=== PATIENT | female | born 1935 | race Caucasian/White ===

== ENCOUNTER → 2016-06-23 | Outpatient (CLI) | payer MEDICARE, MEDICAID | LOC: RAD 13:20 | PROVIDERS: ATTEND Internal Medicine Hematology & Oncology | DX: R05 Cough (principal); R63.4 Abnormal weight loss; D49.1 Neoplasm of unspecified behavior of respiratory system | CPT/HCPCS: 71260; 74177 ==

== ENCOUNTER → 2016-08-19 | Outpatient (CLI) | payer MEDICARE, MEDICAID ==
--- NOTE | 2016-08-19 18:49 | XCELERA REPORT ---
[address] [address] Transthoracic Echocardiogram Report Name: MIGUEL ANGEL KYLE Age: 81 yrs Gender: Female : 1935 Patient Status: Outpatient Patient Location: Study Date: 08/19/2016 12:59 PM Height: 64 in Weight: 117 lb BSA: 1.6 m2 Reason For Study: DIZZINESS Ordering Physician: DOLORES MORE Performed By: Colt Olguin Interpretation Summary severe aortic root calcification with no enlargement. severe R cor cusps calcification, restricted movement, the other 2 cusps still mobile. Peak AV yeyo and gradient not suggests , but cannot rule out low output low gradient . There is also mod. AR, with no LV enlargement. Heavy mitral annular calcification with no MA and mild MR with no LA enlargement. Mod TR with borderline RA enlargement, and RVSP40 mm Hg mild/mod pulm hypertension. Mild conc. LVH with subaortic hypertrophy with no LVOT gradient.Diffuse mild hypokinesis. AR mod/severe. LVDD stageI severe MAC MMode/2D Measurements \T\ Calculations RVDd: 2.1 cm LVIDd: 4.4 cm FS: 21.0 % Ao root diam: IVSd: 1.1 cm LVIDs: 3.5 cm EDV(Teich): 3.3 cm LVPWd: 1.1 cm 89.0 ml Ao root area: ESV(Teich): 50.8 ml 8.5 cm2 EF(Teich): 42.9 %LA dimension: 2.6 cm LVLd ap4: 7.0 cm SV(MOD-sp4): EDV(MOD-sp4): 40.0 ml 90.0 ml LVLs ap4: 6.3 cm ESV(MOD-sp4): 50.0 ml EF(MOD-sp4): 44.4 % Doppler Measurements \T\ Calculations MV E max yeyo: MV P1/2t max yeyo: Ao V2 max: AI max yeyo: 55.9 cm/sec 55.9 cm/sec 119.4 cm/sec 326.1 cm/sec MV A max yeyo: MV P1/2t: 69.2 msec Ao max PG: AI max P.4 cm/sec MVA(P1/2t): 3.2 cm2 5.7 mmHg 42.6 mmHg MV E/A: 0.59 MV dec slope: AI dec slope: 236.5 cm/sec2 203.6 cm/sec2 AI P1/2t: 469.2 msec LV V1 max PG: PA V2 max: PI end-d yeyo: TR max yeyo: 2.1 mmHg 64.8 cm/sec 113.6 cm/sec 224.2 cm/sec LV V1 max: PA max P.7 mmHg TR max P.2 cm/sec 20.6 mmHg RVSP(TR): 30.6 mmHg RAP systole: 10.0 mmHg Left Ventricle The left ventricle is normal in size. There is mild concentric left ventricular hypertrophy. Proximal septal thickening is noted. Left ventricular systolic function is mildly reduced. The Ejection Fraction estimate is 40-45%. Doppler measurements suggest impaired left ventricular relaxation, which is associated with grade I/IV or mild diastolic dysfunction. There is mild global hypokinesis of the left ventricle. There is no thrombus. Right Ventricle The right ventricle is grossly normal size. The right ventricular systolic function is normal. Atria The right atrium is normal. The left atrial size is normal. The interatrial septum is intact with no evidence for an atrial septal defect. Mitral Valve There is moderate mitral leaflet calcification. There is severe mitral annular calcification. There is no evidence of mitral valve prolapse. There is no mitral valve stenosis. There is a mild amount of mitral regurgitation. Aortic Valve The aortic valve is moderately calcified. RCC. The aortic valve is trileaflet. There is no aortic valvular vegetation. There is no aortic valve stenosis. There is a peak gradient of 6 mm of Hg. There is a moderate to severe amount of aortic regurgitation. jet ht/LVOT 0.59, PHT 481ms. Tricuspid Valve The tricuspid is normal in structure and function. There is no tricuspid valve prolapse. There is no tricuspid stenosis. There is a mild amount of tricuspid regurgitation. Pulmonic Valve The pulmonic valve is not well visualized. There is a trace or physiologic amount of pulmonic regurgitation. Great Vessels The aortic root is normal size. There is aortic root sclerosis/calcification. Effusions There is no pericardial effusion. I WMSI = 2.00 % Normal = 0 Segments Size X - Cannot 2 - 4 - 1-2 small Interpret 1 - Normal Hypokinetic 3 - AkineticDyskinetic 3-5 moderate 5 - 6-14 large Aneurysmal 15-16 diffuse : DOLORES MORE > Matt Simmons
== END ==
LOC: SP 12:28
PROVIDERS: ATTEND Family Medicine
DX: R42 Dizziness and giddiness (principal); I65.21 Occlusion and stenosis of right carotid artery
CPT/HCPCS: 93306; 93880

== ENCOUNTER 2016-09-01 18:27 | Emergency (ER) | payer MEDICARE, MEDICAID ==
--- NOTE | 2016-09-01 20:30 | ER Document Report ---
ED Medical Screen (RME) - General Chief Complaint: Fall Stated Complaint: FALL,HEAD LACERATION Mode of Arrival: Wheelchair Information source: Patient, Relative Notes: 81-year-old female presents after a fall with complaints of abrasion to left supraorbital region pain of the right great toe Patient unsure if she passed out or tripped Patient has history of dizziness and falls I have greeted and performed a rapid initial assessment of this patient. A comprehensive ED assessment and evaluation of the patient, analysis of test results and completion of the medical decision making process will be conducted by additional ED providers. PHYSICAL EXAMINATION: GENERAL: Well-appearing, well-nourished and in no acute distress. HEAD: Left orbital completion EYES: Pupils equal round extraocular movements intact, conjunctiva are normal. ENT: Nares patent NECK: Normal range of motion LUNGS: No respiratory distress Musculoskeletal: Normal range of motion right foot great toe tenderness NEUROLOGICAL: Normal speech, normal gait. PSYCH: Normal mood, normal affect. SKIN: Facial abrasion TRAVEL OUTSIDE OF THE [place] IN LAST 30 DAYS: No - Related Data Allergies/Adverse Reactions: No Known Allergies Allergy (Verified 09/01/16 20:18) Past Medical History - Past Medical History Cardiac Medical History: Reports: Hx Hypercholesterolemia, Hx Hypertension Denies: Hx Coronary Artery Disease, Hx Heart Attack Pulmonary Medical History: Reports: Hx Pneumonia Denies: Hx Asthma, Hx Bronchitis Neurological Medical History: Denies: Hx Cerebrovascular Accident, Hx Seizures Endocrine Medical History: Reports: Hx Diabetes Mellitus Type 2 Renal/ Medical History: Denies: Hx Peritoneal Dialysis Malignancy Medical History: Reports: Hx Lung Cancer Musculoskeltal Medical History: Reports Hx Arthritis - LOWER BACK? Psychiatric Medical History: Denies: Hx Depression Past Surgical History: Reports: Hx Section, Hx Tubal Ligation. Denies : Hx Hysterectomy - Immunizations Immunizations up to date: No Hx Diphtheria, Pertussis, Tetanus Vaccination: No
[2016-09-01 20:53] LABS: ABSOLUTE BASOPHILS # (AUTO) 0.1 10^3/uL (0.0-0.2); ABSOLUTE EOSINOPHILS # (AUTO) 0.2 10^3/uL (0.0-0.6); ABSOLUTE LYMPHOCYTES (AUTO) 1.8 10^3/uL (0.5-4.7); ABSOLUTE MONOCYTES (AUTO) 0.6 10^3/uL (0.1-1.4); BASOPHILS % (AUTO) 1.6 % (0-2); EOSINOPHILS % (AUTO) 2.3 % (0-6); HEMATOCRIT 38.5 % (36.0-47.0); HEMOGLOBIN 12.6 g/dL (12.0-15.5); HGB HCT DIFFERENCE -0.7; LYMPHOCYTES % (AUTO) 20.9 % (13-45); MEAN CORPUSCULAR HGB CONC 32.8 g/dL (32.0-36.0); MEAN CORPUSCULAR VOLUME 83 fl (80-97); MONOCYTES % (AUTO) 7.3 % (3-13); RED BLOOD COUNT 4.67 10^6/uL (3.72-5.28); RED CELL DISTRIBUTION WIDTH 14.7 % (11.5-14.0); SEGMENTED NEUTROPHILS % (AUTO) 67.9 % (42-78); WHITE BLOOD COUNT 8.8 10^3/uL (4.0-10.5)
[2016-09-01 21:13] LABS: ALANINE AMINOTRANSFERASE 22 U/L (9-52); ALBUMIN 4.3 g/dL (3.5-5.0); ALKALINE PHOSPHATASE 69 U/L (38-126); ANION GAP 12 (5-19); ASPARTATE AMINO TRANSFERASE 19 U/L (14-36); BILIRUBIN,DIRECT 0.1 mg/dL (0.0-0.4); BILIRUBIN,TOTAL 0.4 mg/dL (0.2-1.3); BLOOD UREA NITROGEN 20 mg/dL (7-20); CALCIUM 10.1 mg/dL (8.4-10.2); CARBON DIOXIDE 29 mmol/L (22-30); CHLORIDE 102 mmol/L (98-107); CREATINE KINASE 41 U/L (30-135); CREATININE RESULT 0.78 mg/dL (0.52-1.25); GLUCOSE 102 mg/dL (75-110); LIPASE 123.3 U/L (23-300); POTASSIUM 4.8 mmol/L (3.6-5.0); SODIUM 143.3 mmol/L (137-145); TOTAL PROTEIN 6.8 g/dL (6.3-8.2)
[2016-09-01 21:23] LABS: CREATINE KINASE MB 1.32 ng/mL (<4.55)
[2016-09-01 21:28] LABS: TROPONIN I < 0.012 ng/mL
--- NOTE | 2016-09-01 21:45 | ER Document Report ---
ED General - General Chief Complaint: Fall Stated Complaint: FALL,HEAD LACERATION Time seen by provider: 21:45 Mode of Arrival: Wheelchair Information source: Patient TRAVEL OUTSIDE OF THE [place] IN LAST 30 DAYS: No - HPI Notes: Pt presents from home after fall at home. The patient recalls reaching up for a railing when she was going down the stairs and missing the railing then she awoke on the floor. The patient has had previous episodes of falls at the same location trying to go down the stairs where the railing is not easily accessible. Patient presents with left facial pain, headache, right great toe pain and left lateral lower rib cage pain since the fall. Patient denies any anterior chest wall pain or abdominal pain. She reports no focal numbness or paresthesia. Patient has a history of recurrent falls and vertigo and is followed up with neurology for the same in the past. Patient lives at home with her son. The patient's regular practitioner has made attempts at obtaining home health assistance for the patient, but this is been unsuccessful. - Related Data Allergies/Adverse Reactions: No Known Allergies Allergy (Verified 09/01/16 20:18) Past Medical History - General Information source: Patient, Relative - Social History Smoking Status: Former Smoker Cigarette use (# per day): No Frequency of alcohol use: None Drug Abuse: None Family History: Reviewed & Not Pertinent - Past Medical History Cardiac Medical History: Reports: Hx Hypercholesterolemia, Hx Hypertension Denies: Hx Coronary Artery Disease, Hx Heart Attack Pulmonary Medical History: Reports: Hx Pneumonia Denies: Hx Asthma, Hx Bronchitis Neurological Medical History: Denies: Hx Cerebrovascular Accident, Hx Seizures Endocrine Medical History: Reports: Hx Diabetes Mellitus Type 2 Renal/ Medical History: Denies: Hx Peritoneal Dialysis Malignancy Medical History: Reports: Hx Lung Cancer Musculoskeltal Medical History: Reports Hx Arthritis - LOWER BACK? Psychiatric Medical History: Denies: Hx Depression Past Surgical History: Reports: Hx Section, Hx Tubal Ligation. Denies : Hx Hysterectomy - Immunizations Immunizations up to date: No Hx Diphtheria, Pertussis, Tetanus Vaccination: No Hx Pneumococcal Vaccination: 02/08/10 Review of Systems - Review of Systems Notes: REVIEW OF SYSTEMS: CONSTITUTIONAL : Denies fever, chills, or sweats. Denies recent illness. EENT: Denies eye, ear, throat, or mouth pain or symptoms. Denies nasal or sinus congestion or discharge. Denies throat, tongue, or mouth swelling or difficulty swallowing. CARDIOVASCULAR: Denies palpitations or racing or irregular heart beat. Denies ankle edema. RESPIRATORY: Denies cough, cold, or chest congestion. Denies shortness of breath, difficulty breathing, or wheezing. GASTROINTESTINAL: Denies abdominal pain or distention. Denies nausea, vomiting , or diarrhea. Denies blood in vomitus, stools, or per rectum. Denies black, tarry stools. Denies constipation. GENITOURINARY: Denies difficulty urinating, painful urination, burning, frequency, blood in urine, or discharge. FEMALE GENITOURINARY: Denies vaginal bleeding, heavy or abnormal periods, irregular periods. Denies vaginal discharge or odor. MUSCULOSKELETAL: Denies back or neck pain or stiffness. Denies joint pain or swelling. SKIN: Denies rash, lesions or sores. HEMATOLOGIC : Denies easy bruising or bleeding. LYMPHATIC: Denies swollen, enlarged glands. NEUROLOGICAL: Denies confusion or altered mental status. Denies dizziness or lightheadedness. Denies weakness or paralysis or loss of use of either side. Denies problems speech. Denies sensory loss, numbness, or tingling. Denies seizures. PSYCHIATRIC: Denies anxiety or stress. Denies depression, suicidal ideation, or homicidal ideation. ALL OTHER SYSTEMS REVIEWED AND NEGATIVE. Dictation was performed using [employer] voice recognition software Physical Exam - Notes Notes: PHYSICAL EXAMINATION: GENERAL: Well-appearing, well-nourished and in no acute distress. HEAD: Patient has a left facial contusion along the left supraorbital rim where there is a 1 cm laceration and abrasion. There is no bony deformity or crepitance noted to the region. No obvious exposed bone or fracture. EYES: Pupils equal round and reactive to light, extraocular movements intact, conjunctiva are normal. ENT: Nares patent, oropharynx clear without exudates. Moist mucous membranes. NECK: Normal range of motion, supple without lymphadenopathy LUNGS: Breath sounds clear to auscultation bilaterally and equal. No wheezes rales or rhonchi. HEART: Regular rate and rhythm without murmurs ABDOMEN: Soft, nontender, nondistended abdomen. No guarding, no rebound. No masses appreciated. Female : deferred Musculoskeletal: Patient has pain to the left lateral lower rib cage, but there is no subcutaneous emphysema or crepitance or obvious bony deformity. Patient also has pain to the right great toe, but there is no obvious bony deformity or crepitance noted. No nail bed injury. Full range of motion to the foot and great toe. NEUROLOGICAL: Cranial nerves grossly intact. Normal speech, normal gait. Normal sensory, motor exams. PSYCH: Normal mood, normal affect. SKIN: Warm, Dry, normal turgor, no rashes or lesions noted. Course - Re-evaluation Re-evalutation: 09/02/16 00:14 Patient's tetanus was up-to-date. Wound care was cleaned and then topical anesthetic LET was applied to the wound. After this wound was cleaned and irrigated and was reapproximated and closed using Dermabond with good result. Patient tolerated the procedure well. Blood loss negligible. Patient was able to ambulate without significant difficulty. Had a long discussion with the patient and her son related to her safety at home. The patient will have the home environment further evaluated to look for safety measures can be taken for additional hand old and safety rails. She will use her walker at all times. She will stand up slowly. She will also follow-up with her regular practitioner to continue to pursue home health systems or other assistance from the son who stays with her at home. - Laboratory Result Diagrams: 09/01/16 20:37 09/01/16 20:37 Laboratory results interpreted by me: 09/01/16 09/01/16 20:37 20:37 RDW 14.7 H NT-Pro-B Natriuret Pep 651 H Discharge - Discharge Clinical Impression: Accidental fall Qualifiers: Encounter type: initial encounter Qualified Code(s): W19.XXXA - Unspecified fall, initial encounter Head injury Qualifiers: Encounter type: initial encounter Qualified Code(s): S09.90XA - Unspecified injury of head, initial encounter Facial laceration Qualifiers: Encounter type: initial encounter Qualified Code(s): S01.81XA - Laceration without foreign body of other part of head, initial encounter Facial fracture Qualifiers: Encounter type: initial encounter Facial bone/location: other facial bone Fracture type: closed Laterality: left Qualified Code(s): S02.82XA - Fracture of other specified skull and facial bones, left side, initial encounter for closed fracture Condition: Stable Disposition: HOME, SELF-CARE Additional Instructions: Take precautions to protect yourself by troubleshooting your home against any fall risks. Use a walker at all times when ambulating. Facial Laceration A laceration on the face usually heals quickly. Our treatment goal will be to avoid an unsightly scar or stitch-delatorre. Your cut has been closed with the best techniques to avoid scarring, but a great deal depends on how well you protect the laceration -- and on your inherited tendency to scar. As facial cuts are usually caused by a blunt injury, it's usually best to rest for a day to avoid swelling. Do not allow any bumping or rubbing of the area. Keep the stitches dry. Follow the treatment plan the doctor has discussed with you and DO NOT DELAY getting the stitches out. Once stitches are removed, continue to protect the area from trauma and sunlight (use a sunscreen) for about six months. If any signs of infection occur (swelling, redness, increasing tenderness, red streaks, tender lumps in the neck or near the ear on the side of the laceration, or fever), see the doctor immediately. Facial Bone Fracture, Undisplaced You have a fracture of the facial bones. It's in good position to heal and needs no splinting or special protection. The fracture will take three to four weeks to heal. At first, the injured area should be cold-packed frequently. Rest in a semi-sitting position if possible. When pain and swelling subside, you can return to regular activities. Do not participate in sports for four weeks. The fracture must remain undisturbed. Call the doctor or return for re-evaluation if you suspect a re-injury, or if any of the following signs of complications occur: continued drainage of fluid or blood from the nose, fever, severe facial swelling or increasing pain, numbness, or loss of vision. Prescriptions: Tramadol HCl 50 mg PO Q4HP PRN #30 tablet PRN Reason: Cephalexin Monohydrate [Keflex 500 mg Capsule] 500 mg PO TID #20 capsule Referrals: DOLORES MORE MD [Primary Care Provider] - Follow up tomorrow
[2016-09-01] MEDS ORDERED: LIDOCAINE 4%/TETRACAINE 0.5%/EPI 0.18% 5 ML TOPICAL SOLN TOP ONE (22:41)
[2016-09-01] MEDS ORDERED: TRAMADOL HCL 50 MG TABLET PO ONE (22:42)
[2016-09-02] MEDS ORDERED: CEPHALEXIN 500 MG CAPSULE PO ONE (00:04)
[2016-09-02 00:39] VITALS: BP 122/61
[2016-09-02 01:01] LABS: APPEARANCE,URINE SLIGHTLY-CLOUDY; BILIRUBIN,URINE NEGATIVE (NEGATIVE); GLUCOSE, URINE NEGATIVE (NEGATIVE); KETONES,URINE NEGATIVE (NEGATIVE); LEUKOCYTE ESTERASE,URINE MODERATE (NEGATIVE); NITRITE,URINE POSITIVE (NEGATIVE); PROTEIN,URINE NEGATIVE (NEGATIVE); URINE SPECIFIC GRAVITY 1.006; UROBILINOGEN,URINE NEGATIVE mg/dL (<2.0)
--- NOTE | 2016-09-02 11:20 | EKG REPORT ---
SEVERITY:- ABNORMAL ECG - SINUS RHYTHM MULTIPLE ATRIAL PREMATURE COMPLEXES PROBABLE LEFT ATRIAL ABNORMALITY MINIMAL ST DEPRESSION, ANTEROLATERAL LEADS : Confirmed by: Jarred Iglesias 02-Sep-2016 11:20:09
== END 2016-09-02 00:52 | disposition home or self-care (01) ==
LOC: ER 18:27
DX: S09.90XA Unspecified injury of head, initial encounter (principal); S01.81XA Laceration without foreign body of other part of head, initial encounter; S02.82XA Fracture of other specified skull and facial bones, left side, initial encounter for closed fracture; R07.81 Pleurodynia; M79.674 Pain in right toe(s); W10.9XXA Fall (on) (from) unspecified stairs and steps, initial encounter; Y92.009 Unspecified place in unspecified non-institutional (private) residence as the place of occurrence of the external cause; I10 Essential (primary) hypertension; E78.00 Pure hypercholesterolemia, unspecified; E11.9 Type 2 diabetes mellitus without complications; Z87.891 Personal history of nicotine dependence; Z91.81 History of falling; Z85.118 Personal history of other malignant neoplasm of bronchus and lung; Z98.51 Tubal ligation status
CPT/HCPCS: 93005; 99284; 36415; 82553; 82550; 83690; 85025; 80053; 81001; 84484; 83880; 71020; 73630; 70450; 70486; 93010; A9270 ×2; J3490

== ENCOUNTER → 2017-01-22 | Outpatient (CLI) | payer MEDICARE, MEDICAID ==
--- NOTE | 2017-01-22 17:31 | RADIOLOGY REPORT (SQ) ---
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 Images reviewed with lung, soft tissue and bone windows. Reconstructed coronal and sagittal MPR images reviewed. All images stored on PACS. All CT scanners at this facility use dose modulation, iterative reconstruction, and/or weight based d osing when appropriate to reduce radiation dose to as low as reasonably achievable (ALARA). [facility]: Dose Right [facility]: CareDose [facility]: Dose Right [facility]: Teradose 4D [facility]: [employer] CONTRAST TYPE AND DOSE: contrast/concentration: Isovue 370.00 mg/ml; Total Contrast Delivered: 80.0 ml; Total Saline Delivered: 55.0 ml RENAL FUNCTION: Creatinine 0.9 RADIATION DOSE: Up-to-date CT equipment and radiation dose reduction techniques were employed. CTDIv ol: 5.6 mGy. DLP: 200 mGy-cm. . LIMITATIONS: None. FINDINGS: LUNGS AND PLEURA: There are multiple small subcentimeter nodules scattered throughout both lungs. These are stable over the series of exams. Index lesions are as follows: 8 mm nodule superior segment right lower lobe, axial image 42 11 mm nodule left lower lobe, axial image 90 No pleural effusions. No pneumothorax. Airways are patent. HILAR AND MEDIASTINAL STRUCTURES: No identified masses or abnormal nodes. Moderate size retrocardiac hiatal hernia HEART AND VASCULAR STRUCTURES: No aneurysm or dissection. No central pulmonary emboli. No pericardi al effusion. Calcified coronary arteries. Minimal aortic valve calcification HARDWARE: None in the chest. UPPER ABDOMEN: No significant findings. Limited exam. THYROID AND OTHER SOFT TISSUES: No masses. No adenopathy. BONES: Stable 1 cm sclerotic lesion T11 vertebral body OTHER: No other significant finding. IMPRESSION: Stable appearance of the chest compared to studies dating back to 05/21/2014 TECHNICAL DOCUMENTATION: JOB ID: [id number] Quality ID # [id number]: Final reports with documentation of one or more dose reduction techniques (e.g., Au tomated exposure control, adjustment of the mA and/or kV according to patient size, use of iterative reconstruction technique) 2010 [employer]- All Rights Reserved
== END ==
LOC: RAD 09:51
PROVIDERS: ATTEND Internal Medicine Hematology & Oncology
DX: D49.1 Neoplasm of unspecified behavior of respiratory system (principal); R91.8 Other nonspecific abnormal finding of lung field; J98.4 Other disorders of lung
CPT/HCPCS: 71260

== ENCOUNTER → 2017-07-02 | Outpatient (CLI) | payer MEDICARE, MEDICAID ==
--- NOTE | 2017-07-07 13:45 | EEG PRO FEE REPORT ---
EEG INTERPRETATION PATIENT NAME: MIGUEL ANGEL KYLE ROOM#: ORDER#: [id number] DATE OF STUDY: 07/02/2017 : 1935 REFERRING MD: RENAY WEAVER M.D. DIAGNOSIS: Benign neoplasm meninges. REPORT The background activity consists of 8 to 9 Hz alpha with frequent motion artifact being noted. No abnormalities are seen on the video portion of the tracing. No clear focal slowing, amplitude asymmetry, or clear cut epileptiform discharges are seen. Overall, this appears to be a normal EEG in a tense, awake adult. INTERPRETING PHYSICIAN: HERBER BARBER M.D. /: HILDA TT: 1342 ID: [id number] /: [id number] TD: [id number] JOB: [id number] cc:Conner CHILDS M.D. >
== END ==
LOC: NEURO 12:34
PROVIDERS: ATTEND Pediatrics
DX: D32.9 Benign neoplasm of meninges, unspecified (principal); R41.3 Other amnesia
CPT/HCPCS: 95819

== ENCOUNTER 2017-07-11 12:06 | Emergency (ER) | payer MEDICARE, MEDICAID ==
--- NOTE | 2017-07-11 13:52 | ER Document Report ---
ED Fall - General Chief Complaint: Fall Injury Stated Complaint: FALL Time Seen by Provider: 07/11/17 13:28 Information source: Patient, Relative Notes: 82-year-old female that states she was walking in the room today and "slipped" falling down. She states she is not sure if she hit her head but denies loss of consciousness. She states she remembers the whole event. Patient states over the last few months she has felt a little dizzy but denies any dizziness this morning. She denies any chest pain, palpitations, abdominal pain, nausea, vomiting, fevers, either before or after the event. Patient did complain of some neck pain upon arrival in the cervical collar was placed. According to the patient and family she does have some dementia. TRAVEL OUTSIDE OF THE [place] IN LAST 30 DAYS: No - HPI Occurred: This morning Where: Home Context: Slipped Associated symptoms: None Location of injury/pain: Other - See above Quality of pain: No pain Severity: Mild Pain Level: 1 - Related data Allergies/Adverse Reactions: No Known Allergies Allergy (Verified 07/11/17 12:08) Past Medical History - General Information source: Patient, Relative - Social History Smoking Status: Unknown if Ever Smoked Cigarette use (# per day): No Chew tobacco use (# tins/day): No Smoking Education Provided: No Frequency of alcohol use: None Drug Abuse: None Family History: Reviewed & Not Pertinent - Past Medical History Cardiac Medical History: Reports: Hx Hypercholesterolemia, Hx Hypertension Denies: Hx Coronary Artery Disease, Hx Heart Attack Pulmonary Medical History: Reports: Hx Pneumonia Denies: Hx Asthma, Hx Bronchitis Neurological Medical History: Denies: Hx Cerebrovascular Accident, Hx Seizures Endocrine Medical History: Reports: Hx Diabetes Mellitus Type 2 Renal/ Medical History: Denies: Hx Peritoneal Dialysis Malignancy Medical History: Reports: Hx Lung Cancer Musculoskeltal Medical History: Reports Hx Arthritis - LOWER BACK? Psychiatric Medical History: Denies: Hx Depression Past Surgical History: Reports: Hx Section, Hx Tubal Ligation. Denies : Hx Hysterectomy - Immunizations Immunizations up to date: No Hx Diphtheria, Pertussis, Tetanus Vaccination: No Hx Pneumococcal Vaccination: 02/08/10 Review of Systems - Review of Systems Constitutional: denies: Fever EENT: denies: Eye discharge, Nose discharge Cardiovascular: denies: Chest pain, Palpitations Respiratory: denies: Short of breath Gastrointestinal: denies: Vomiting Genitourinary: denies: Dysuria Musculoskeletal: denies: Leg swelling Skin: Other - no hives. denies: Rash Neurological/Psychological: Other - no slurred speech -: Yes All other systems reviewed and negative Physical Exam - Vital signs Vitals: Temp Pulse Resp BP Pulse Ox 97.7 F 74 16 149/63 H 95 07/11/17 12:42 07/11/17 12:42 07/11/17 12:42 07/11/17 12:42 07/11/17 12:42 Notes: Reviewed vital signs and nursing note as charted by RN. CONSTITUTIONAL: Alert and responds appropriately to questions. She is oriented to person, place, and president; she does not know the month or the year; well- appearing; well-nourished HEAD: Normocephalic; atraumatic EYES: PERRL; full extraocular range of motion ENT: Normal nose; no rhinorrhea; moist mucous membranes; pharynx without lesions noted NECK: Supple without meningismus; cervical collar in place; some mild tenderness to the lower cervical spine without any obvious step-offs or swelling CARD: Regular rate and rhythm; no murmurs RESP: Normal chest excursion without splinting or tachypnea; breath sounds clear and equal bilaterally ABD/GI: Normal bowel sounds; non-distended; soft, non-tender, no abdominal bruits or masses palpated BACK: The back appears normal and is non-tender to palpation, no tenderness to anterior or posterior ribs EXT: Normal ROM in all joints including full flexion of bilateral knees to chest with no hip tenderness; non-tender to palpation; no cyanosis, no effusions , no edema SKIN: Normal color for age and race; warm; no acute lesions noted NEURO: CN II through XII are intact. Moves all extremities equally; Motor and sensory function intact PSYCH: The patient's mood and manner are appropriate. Grooming and personal hygiene are appropriate. Course - Re-evaluation Re-evalutation: 07/11/17 13:51 Given the history and physical examination, we will obtain basic labs, troponin , urinalysis, EKG, and obtain a CT scan of the head and cervical spine. I do not believe imaging of the pelvis is necessary at this time. 07/11/17 13:57 EKG shows a heart rate of 80, normal sinus rhythm, normal axis, no obvious ST elevation or depression, PAC's and PVC's present 07/11/17 14:41 The radiologist called me about this patient and states he sees a type II odontoid fracture. Patient is still neurovascularly intact. Labs are pending. X-ray of the chest shows a possible new right pleural effusion. Patient denies any chest or rib pain. Patient has no tenderness to the anterior posterior ribs upon palpation. Patient denies any shortness of breath. I have called and spoken to the trauma transfer system at [facility]. They have accepted the patient for transfer. Vital signs are stable. - Vital Signs Vital signs: Temp Pulse Resp BP Pulse Ox 97.7 F 74 15 149/63 H 98 07/11/17 12:42 07/11/17 12:42 07/11/17 14:15 07/11/17 12:42 07/11/17 14:15 - Laboratory Result Diagrams: 07/11/17 13:45 07/11/17 13:45 Discharge - Discharge Clinical Impression: Fall Qualifiers: Encounter type: initial encounter Qualified Code(s): W19.XXXA - Unspecified fall, initial encounter Type II fracture of odontoid process Qualifiers: Encounter type: initial encounter Fracture type: closed Fracture alignment: nondisplaced Qualified Code(s): S12.112A - Nondisplaced Type II dens fracture, initial encounter for closed fracture Condition: Fair Disposition: [facility] Referrals: KELLEN LUNA MD [Primary Care Provider] - Follow up as needed
--- NOTE | 2017-07-11 14:35 | RADIOLOGY REPORT (SQ) ---
EXAM DESCRIPTION: CHEST SINGLE VIEW COMPLETED DATE/TIME: 07/11/2017 2:18 pm REASON FOR STUDY: 5, fall COMPARISON: 09/01/2016 EXAM PARAMETERS: NUMBER OF VIEWS: One view. TECHNIQUE: Single frontal radiographic view of the chest acquired. RADIATION DOSE: NA LIMITATIONS: None. FINDINGS: LUNGS AND PLEURA: Scattered patchy opacities, not significantly changed from prior examina tion. No pneumothorax visualized. Likely right-sided pleural effusion. MEDIASTINUM AND HILAR STRUCTURES: Unchanged from prior exam HEART AND VASCULAR STRUCTURES: Unchanged from prior exam BONES: No definite displaced fractures at this time. HARDWARE: None in the chest. OTHER: No other significant finding. IMPRESSION: 1. New right-sided pleural effusion 2. No evidence of acute fracture at this time 3. Stable appearance of the lungs TECHNICAL DOCUMENTATION: JOB ID: [id number] [employer]- All Rights Reserved Reading location - IP/workstation name: [email or web address]
[2017-07-11 14:47] LABS: APPEARANCE,URINE CLEAR; BILIRUBIN,URINE NEGATIVE (NEGATIVE); COLOR,URINE YELLOW; GLUCOSE, URINE NEGATIVE (NEGATIVE); KETONES,URINE NEGATIVE (NEGATIVE); LEUKOCYTE ESTERASE,URINE TRACE (NEGATIVE); NITRITE,URINE NEGATIVE (NEGATIVE); PROTEIN,URINE NEGATIVE (NEGATIVE); URINE SPECIFIC GRAVITY 1.005; UROBILINOGEN,URINE NEGATIVE mg/dL (<2.0)
[2017-07-11 14:48] LABS: ABSOLUTE BASOPHILS # (AUTO) 0.1 10^3/uL (0.0-0.2); ABSOLUTE EOSINOPHILS # (AUTO) 0.2 10^3/uL (0.0-0.6); ABSOLUTE LYMPHOCYTES (AUTO) 3.1 10^3/uL (0.5-4.7); ABSOLUTE MONOCYTES (AUTO) 1.1 10^3/uL (0.1-1.4); ABSOLUTE NEUT (AUTO) 7.1 10^3/uL (1.7-8.2); BASOPHILS % (AUTO) 0.9 % (0-2); EOSINOPHILS % (AUTO) 1.6 % (0-6); HEMATOCRIT 39.7 % (36.0-47.0); LYMPHOCYTES % (AUTO) 26.6 % (13-45); MEAN CORPUSCULAR HEMOGLOBIN 26.2 pg (27.0-33.4); MEAN CORPUSCULAR HGB CONC 32.7 g/dL (32.0-36.0); MEAN CORPUSCULAR VOLUME 80 fl (80-97); MONOCYTES % (AUTO) 9.2 % (3-13); PLATELET COUNT 224 10^3/uL (150-450); RED BLOOD COUNT 4.97 10^6/uL (3.72-5.28); RED CELL DISTRIBUTION WIDTH 14.8 % (11.5-14.0); SEGMENTED NEUTROPHILS % (AUTO) 61.7 % (42-78); TOTAL CELLS COUNTED % (AUTO) 100 %; WHITE BLOOD COUNT 11.5 10^3/uL (4.0-10.5)
--- NOTE | 2017-07-11 14:48 | RADIOLOGY REPORT (SQ) ---
EXAM DESCRIPTION: CT CERVICAL SPINE WITHOUT COMPLETED DATE/TIME: 07/11/2017 2:24 pm REASON FOR STUDY: 6, fall COMPARISON: 05/03/2016 TECHNIQUE: Axial images acquired through the cervical spine without intravenous contrast. Images re viewed with lung, soft tissue and bone windows. Reconstructed coronal and sagittal MPR images review ed. Images stored on PACS. All CT scanners at this facility use dose modulation, iterative reconstruction, and/or weight based d osing when appropriate to reduce radiation dose to as low as reasonably achievable (ALARA). [facility]: Dose Right [facility]: CareDose [facility]: Dose Right [facility]: Teradose 4D [facility]: [employer] RADIATION DOSE: CT Rad equipment meets quality standard of care and radiation dose reduction techniq ues were employed. CTDIvol: 9.1 mGy. DLP: 182 mGy-cm. mGy. LIMITATIONS: None. FINDINGS: ALIGNMENT: There is mild retrolisthesis of C1 on C2 MINERALIZATION: Normal. VERTEBRAL BODIES: There is a type 2 odontoid fracture of C2 present. Minimal displacement is present . The posterior margins of the fracture appear to have some sclerosis about the edges however the an terior aspect is somewhat sharp in appearance. There is some calcification in the posterior longitud inal ligament at the C1 level. No soft tissue swelling in the anterior soft tissues. Scattered dege nerative changes are noted throughout remainder of the cervical spine. No other fractures are identi fied. DISCS: Multilevel disc space narrowing with osteophytes. FACETS, LATERAL MASSES, POSTERIOR ELEMENTS: Facet arthropathy. No fractures. No dislocation. No ac minto findings. HARDWARE: None in the spine. VISUALIZED RIBS: No fractures. LUNG APICES AND SOFT TISSUES: Multiple pulmonary nodules in the apices, some of them are somewhat spi culated in appearance. OTHER: No other significant finding. IMPRESSION: 1. Type 2 odontoid fracture, new when compared to 2016. Given the sharp appearance of the anterior aspect of the fracture, this likely represents an acute fracture however no significant soft tissue swelling is present. 2. Multiple spiculated pulmonary nodules in the lung apices. This likely correlates with patient's known history of carcinoid. Recommend clinical correlation. 3. Chronic degenerative changes. COMMENT: Pertinent findings on the imaging study reported as a CRITICAL RESULT to BLANCA WORLEY MD at 14:36 on 07/11/2017. Category of Critical Result: 1 TECHNICAL DOCUMENTATION: JOB ID: [id number] Quality ID # [id number]: Final reports with documentation of one or more dose reduction techniques (e.g., Au tomated exposure control, adjustment of the mA and/or kV according to patient size, use of iterative reconstruction technique) 2010 [employer]- All Rights Reserved Reading location - IP/workstation name: [email or web address]
--- NOTE | 2017-07-11 14:49 | RADIOLOGY REPORT (SQ) ---
EXAM DESCRIPTION: CT HEAD WITHOUT COMPLETED DATE/TIME: 07/11/2017 2:25 pm REASON FOR STUDY: 5, fall COMPARISON: None. TECHNIQUE: Axial images acquired through the brain without intravenous contrast. Images reviewed wi th bone, brain and subdural windows. Images stored on PACS. All CT scanners at this facility use dose modulation, iterative reconstruction, and/or weight based d osing when appropriate to reduce radiation dose to as low as reasonably achievable (ALARA). [facility]: Dose Right [facility]: CareDose [facility]: Dose Right [facility]: Teradose 4D [facility]: [employer] RADIATION DOSE: CT Rad equipment meets quality standard of care and radiation dose reduction techniq ues were employed. CTDIvol: 64.6 mGy. DLP: 1163 mGy-cm.mGy. LIMITATIONS: None. FINDINGS: VENTRICLES: Prominent. CEREBRUM: No masses. No hemorrhage. No midline shift. Areas of low density in the white matter mos t likely due to chronic micro-vascular ischemic change. No evidence for acute infarction. CEREBELLUM: No masses. No hemorrhage. No alteration of density. No evidence for acute infarction. EXTRAAXIAL SPACES: Age-related involutional change. No fluid collections. No masses. ORBITS AND GLOBE: No intra- or extraconal masses. Normal contour of globe without masses. CALVARIUM: No fracture. PARANASAL SINUSES: No fluid or mucosal thickening. SOFT TISSUES: No mass or hematoma. OTHER: No other significant finding. IMPRESSION: CHRONIC CHANGES OF ATROPHY AND MICROVASCULAR ISCHEMIA. NO ACUTE PROCESS. EVIDENCE OF ACUTE STROKE: NO. TECHNICAL DOCUMENTATION: JOB ID: [id number] Quality ID # 436: Final reports with documentation of one or more dose reduction techniques (e.g., Au tomated exposure control, adjustment of the mA and/or kV according to patient size, use of iterative reconstruction technique) 2010 [employer]- All Rights Reserved Reading location - IP/workstation name: [email or web address]
[2017-07-11 15:04] LABS: ANION GAP 14 (5-19); BLOOD UREA NITROGEN 17 mg/dL (7-20); CALCIUM 10.8 mg/dL (8.4-10.2); CARBON DIOXIDE 28 mmol/L (22-30); CHLORIDE 101 mmol/L (98-107); GLUCOSE 92 mg/dL (75-110); POTASSIUM 4.7 mmol/L (3.6-5.0); SODIUM 142.7 mmol/L (137-145)
[2017-07-11] MEDS ORDERED: FENTANYL CITRATE INJ/PF 100 MCG/2 ML AMPUL IV ONE (16:21)
--- NOTE | 2017-07-11 18:02 | EKG REPORT ---
SEVERITY:- ABNORMAL ECG - SINUS RHYTHM VENTRICULAR PREMATURE COMPLEX : Confirmed by: Matt Simmons MD 11-Jul-2017 18:01:50
[2017-07-11 20:07] VITALS: BP 139/76
== END 2017-07-11 20:14 | disposition short-term general hospital (02) ==
LOC: ER 12:06
DX: S12.112A Nondisplaced Type II dens fracture, initial encounter for closed fracture (principal); W01.0XXA Fall on same level from slipping, tripping and stumbling without subsequent striking against object, initial encounter; Y92.009 Unspecified place in unspecified non-institutional (private) residence as the place of occurrence of the external cause; I49.1 Atrial premature depolarization; I49.3 Ventricular premature depolarization; J90 Pleural effusion, not elsewhere classified; F03.90 Unspecified dementia, unspecified severity, without behavioral disturbance, psychotic disturbance, mood disturbance, and anxiety; I10 Essential (primary) hypertension; E11.9 Type 2 diabetes mellitus without complications; Z85.118 Personal history of other malignant neoplasm of bronchus and lung
CPT/HCPCS: 93005; 99285; 96374; 36415; 82962; 85025; 80048; 81001; 84484; 71045; 70450; 72125; 93010; L0172; L0120; J3010

== ENCOUNTER → 2018-02-23 | Outpatient (CLI) | payer MEDICARE, MEDICAID ==
--- NOTE | 2018-02-23 10:08 | RADIOLOGY REPORT (SQ) ---
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 TECHNIQUE: CT scan of the chest performed using helical scanning technique with dynamic intravenous contrast injection. Images reviewed with lung, soft tissue and bone windows. Reconstructed coronal and sagittal MPR and MIP images reviewed. All images stored on PACS. All CT scanners at this facility use dose modulation, iterative reconstruction, and/or weight based d osing when appropriate to reduce radiation dose to as low as reasonably achievable (ALARA). [facility]: Dose Right [facility]: CareDose [facility]: Dose Right [facility]: Teradose 4D [facility]: [employer] CONTRAST TYPE AND DOSE: 52 mL Isovue 370- low osmolar. RENAL FUNCTION: BUN 0.8 RADIATION DOSE: . LIMITATIONS: None. FINDINGS: LUNGS AND PLEURA: There are multiple bilateral pulmonary nodules. These have increased in size and number since prior study consistent with widespread metastatic disease. Scattered bilatera l emphysematous changes are noted. HILAR AND MEDIASTINAL STRUCTURES: No identified masses or abnormal nodes. HEART AND VASCULAR STRUCTURES: No aneurysm or dissection. No central pulmonary emboli. No pericardi al effusion. HARDWARE: None in the chest. UPPER ABDOMEN: No significant findings. Limited exam. THYROID AND OTHER SOFT TISSUES: No masses. No adenopathy. BONES: No significant finding. OTHER: No other significant finding. IMPRESSION: Multiple bilateral pulmonary nodules increased in size and number when compared to prior study. TECHNICAL DOCUMENTATION: JOB ID: [id number] Quality ID # [id number]: Final reports with documentation of one or more dose reduction techniques (e.g., Au tomated exposure control, adjustment of the mA and/or kV according to patient size, use of iterative reconstruction technique) 2010 [employer]- All Rights Reserved Reading location - IP/workstation name: [email or web address]
--- NOTE | 2018-02-23 10:10 | RADIOLOGY REPORT (SQ) ---
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 No oral contrast. Images reviewed with lung, soft tissue, and bone windows. Reconstructed coronal and sagittal MPR images reviewed. Delayed images for evaluation of the urinary system also acquired. All images stored on PACS. All CT scanners at this facility use dose modulation, iterative reconstruction, and/or weight based d osing when appropriate to reduce radiation dose to as low as reasonably achievable (ALARA). [facility]: Dose Right [facility]: CareDose [facility]: Dose Right [facility]: Teradose 4D [facility]: [employer] CONTRAST TYPE AND DOSE: contrast/concentration: Isovue 350.00 mg/ml; Total Contrast Delivered: 52.0 ml; Total Saline Delivered: 65.0 ml RENAL FUNCTION: Creatinine 0.8 RADIATION DOSE: CT Rad equipment meets quality standard of care and radiation dose reduction techniq ues were employed. CTDIvol: 4.6 - 4.8 mGy. DLP: 623 mGy-cm.. LIMITATIONS: None. FINDINGS: LOWER CHEST: There are bilateral pulmonary nodules. LIVER: Normal size. No masses. No dilated ducts. SPLEEN: Normal size. No focal lesions. PANCREAS: No masses. No significant calcifications. No adjacent inflammation or peripancreatic fluid collections. Pancreatic duct not dilated. GALLBLADDER: There is a gallstone. No surrounding edema. ADRENAL GLANDS: No significant masses or asymmetry. RIGHT KIDNEY AND URETER: No solid masses. No significant calcifications. No hydronephrosis or hyd roureter. LEFT KIDNEY AND URETER: No solid masses. No significant calcifications. No hydronephrosis or hydr oureter. AORTA AND VESSELS: The aorta demonstrates diffuse atherosclerotic change. No aneurysmal dilatation. There is extensive visceral artery calcification as well. RETROPERITONEUM: No retroperitoneal adenopathy, hemorrhage or masses. BOWEL AND PERITONEAL CAVITY: No masses or inflammatory changes. No free fluid or peritoneal masses. APPENDIX: Surgically absent. PELVIS: No mass. No free fluid. Normal bladder. ABDOMINAL WALL: No masses. No hernias. BONES: No significant or acute findings. OTHER: No other significant finding. IMPRESSION: Bilateral pulmonary nodules consistent with metastatic disease. Gallstones. No evidence of metastatic disease in the abdomen or pelvis. TECHNICAL DOCUMENTATION: JOB ID: [id number] Quality ID # [id number]: Final reports with documentation of one or more dose reduction techniques (e.g., Au tomated exposure control, adjustment of the mA and/or kV according to patient size, use of iterative reconstruction technique) 2010 [employer]- All Rights Reserved Reading location - IP/workstation name: [email or web address]
--- NOTE | 2018-02-23 11:57 | RADIOLOGY REPORT (SQ) ---
EXAM DESCRIPTION: MRI HEAD COMBO COMPLETED DATE/TIME: 02/23/2018 10:34 am REASON FOR STUDY: DIZZINESS C7A.090 MALIGNANT CARCINOID TUMOR OF THE BRONCHUS AND LUNG COMPARISON: CT cervical spine 07/11/2017 CT brain 07/11/2017 MRI brain 08/17/2014 TECHNIQUE: Multiplanar imaging includes noncontrasted T1, T2, FLAIR, diffusion with ADC map and post gadolinium contrast T1 sequences. Images stored on PACS. CONTRAST TYPE AND DOSE: 9 mL [employer]. RENAL FUNCTION: GFR > 60. LIMITATIONS: None. FINDINGS: ANATOMY: On midline sagittal images 12 through 15, a nonunited type 2 odontoid fracture is present the. There is a pseudoarthrosis between the dens and remainder of C2, with bulky surroundin g pannus. This partly effaces the ventral thecal sac without definite cord flattening. No significa nt anterolisthesis or retrolisthesis at the fracture site. CSF SPACES: There is an extra-axial mass along the anterior cranial fossa cribriform region with broa d dural base, and flattening of the adjacent inferior frontal lobes. This mass is well-circumscribed and exhibits avid gadolinium enhancement, likely a meningioma. This measures 3.3 cm transverse by 4 .1 cm AP by 2.7 cm craniocaudad (was 3.8 cm AP by 2.1 cm transverse by 2.9 cm craniocaudad on 5). CEREBRUM: Minimal age-appropriate small vessel ischemic change in the hemispheric white matter. In t he anterior inferior frontal lobes there is a halo of vasogenic edema surrounding the upper half of t he cribriform region meningioma. Edema is increased compared to 2015. No MR evidence of acute large territory ischemic change, acute intracranial hemorrhage, mass effect, or midline shift. POSTERIOR FOSSA: No signal alteration. No hemorrhage. No edema, masses, or mass effect. Internal liam tory canals, cerebellopontine angles, mastoids normal. No enhancing lesions. No abnormal enhancement post contrast. DIFFUSION IMAGING: Negative for acute or subacute infarction. ORBITS: No masses. Globes post bilateral cataract surgery. PARANASAL SINUSES: No fluid levels. Mucosa normal. OTHER: No other significant finding. IMPRESSION: Nonunited type 2 odontoid fracture with surrounding pannus. 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 Increase in edema in the adjacent frontal brain parenchyma. No brain parenchymal nodules or enhancement worrisome for metastatic disease. No findings worrisome for acute ischemic change. EVIDENCE OF ACUTE STROKE: NO. TECHNICAL DOCUMENTATION: JOB ID: [id number] [employer]- All Rights Reserved Reading location - IP/workstation name: [email or web address]
== END ==
LOC: RAD 08:37
PROVIDERS: ATTEND Internal Medicine Hematology & Oncology
DX: C7A.090 Malignant carcinoid tumor of the bronchus and lung (principal); R42 Dizziness and giddiness; S12.120K Other displaced dens fracture, subsequent encounter for fracture with nonunion; X58.XXXD Exposure to other specified factors, subsequent encounter
CPT/HCPCS: 82565; 70553; 71260; 74177; A9576

== ENCOUNTER 2018-02-24 19:00 | Emergency (ER) | payer MEDICARE, MEDICAID ==
[2018-02-24] MEDS ORDERED: NORMAL SALINE 1000 ML 1,000 ML IV PRN (19:39)
--- NOTE | 2018-02-24 19:40 | ER Document Report ---
ED Medical Screen (RME) - General Chief Complaint: Leg Pain Stated Complaint: LEG PAIN Time Seen by Provider: 02/24/18 19:38 Notes: 82 years old female from assisted living but living with his son for the last 1 month, has profound weight loss, nearly 20 pounds. She also had lung cancer, the family is wondering whether she has developed metastatic lung cancer. Also multiple bruises, and unsteady gait. TRAVEL OUTSIDE OF THE [place] IN LAST 30 DAYS: No - Related Data Allergies/Adverse Reactions: No Known Allergies Allergy (Verified 02/24/18 19:04) Past Medical History - Past Medical History Cardiac Medical History: Reports: Hx Hypercholesterolemia, Hx Hypertension Denies: Hx Coronary Artery Disease, Hx Heart Attack Pulmonary Medical History: Reports: Hx Pneumonia Denies: Hx Asthma, Hx Bronchitis Neurological Medical History: Denies: Hx Cerebrovascular Accident, Hx Seizures Endocrine Medical History: Reports: Hx Diabetes Mellitus Type 2 Renal/ Medical History: Denies: Hx Peritoneal Dialysis Malignancy Medical History: Reports: Hx Lung Cancer Musculoskeltal Medical History: Reports Hx Arthritis - LOWER BACK? Psychiatric Medical History: Denies: Hx Depression Past Surgical History: Reports: Hx Section, Hx Tubal Ligation. Denies : Hx Hysterectomy - Immunizations Immunizations up to date: No Hx Diphtheria, Pertussis, Tetanus Vaccination: No Physical Exam - Vital signs Vitals: Temp Pulse Resp BP Pulse Ox 98.7 F 80 24 H 142/68 H 94 02/24/18 19:11 02/24/18 19:11 02/24/18 19:11 02/24/18 19:11 02/24/18 19:11 Course - Vital Signs Vital signs: Temp Pulse Resp BP Pulse Ox 98.7 F 80 24 H 142/68 H 94 02/24/18 19:11 02/24/18 19:11 02/24/18 19:11 02/24/18 19:11 02/24/18 19:11 Doctor's Discharge - Discharge Referrals: ART BARRETO MD [Primary Care Provider] - Follow up as needed
[2018-02-24 20:27] LABS: ABSOLUTE BASOPHILS # (AUTO) 0.2 10^3/uL (0.0-0.2); ABSOLUTE EOSINOPHILS # (AUTO) 0.3 10^3/uL (0.0-0.6); ABSOLUTE LYMPHOCYTES (AUTO) 1.5 10^3/uL (0.5-4.7); ABSOLUTE MONOCYTES (AUTO) 0.7 10^3/uL (0.1-1.4); ABSOLUTE NEUT (AUTO) 3.3 10^3/uL (1.7-8.2); BASOPHILS % (AUTO) 2.5 % (0-2); EOSINOPHILS % (AUTO) 5.1 % (0-6); HEMATOCRIT 34.1 % (36.0-47.0); HEMOGLOBIN 11.1 g/dL (12.0-15.5); LYMPHOCYTES % (AUTO) 25.7 % (13-45); MEAN CORPUSCULAR HEMOGLOBIN 25.9 pg (27.0-33.4); MEAN CORPUSCULAR HGB CONC 32.6 g/dL (32.0-36.0); MEAN CORPUSCULAR VOLUME 79 fl (80-97); MONOCYTES % (AUTO) 11.9 % (3-13); PLATELET COUNT 216 10^3/uL (150-450); SEGMENTED NEUTROPHILS % (AUTO) 54.8 % (42-78); TOTAL CELLS COUNTED % (AUTO) 100 %
[2018-02-24 20:32] LABS: INTERNATIONAL RATION (INR) 0.87; PROTHROMBIN TIME 12.3 SEC (11.4-15.4)
[2018-02-24 20:53] LABS: ALANINE AMINOTRANSFERASE 12 U/L (9-52); ALBUMIN 3.6 g/dL (3.5-5.0); ALKALINE PHOSPHATASE 95 U/L (38-126); ANION GAP 9 (5-19); ASPARTATE AMINO TRANSFERASE 21 U/L (14-36); BILIRUBIN,DIRECT 0.1 mg/dL (0.0-0.4); BILIRUBIN,TOTAL 0.3 mg/dL (0.2-1.3); BLOOD UREA NITROGEN 20 mg/dL (7-20); CALCIUM 9.1 mg/dL (8.4-10.2); CARBON DIOXIDE 31 mmol/L (22-30); CHLORIDE 100 mmol/L (98-107); GLUCOSE 175 mg/dL (75-110); POTASSIUM 4.3 mmol/L (3.6-5.0); SODIUM 139.8 mmol/L (137-145)
[2018-02-24 21:02] LABS: APPEARANCE,URINE SLIGHTLY-CLOUDY; BILIRUBIN,URINE NEGATIVE (NEGATIVE); COLOR,URINE YELLOW; GLUCOSE, URINE NEGATIVE (NEGATIVE); KETONES,URINE NEGATIVE (NEGATIVE); LEUKOCYTE ESTERASE,URINE MODERATE (NEGATIVE); NITRITE,URINE NEGATIVE (NEGATIVE); PROTEIN,URINE NEGATIVE (NEGATIVE); URINE SPECIFIC GRAVITY 1.023
[2018-02-24] MEDS ORDERED: CEFTRIAXONE 1 GM/D5W RTU 1 GM/50 ML RTUPB IV ONE (21:47)
--- NOTE | 2018-02-24 21:49 | RADIOLOGY REPORT (SQ) ---
EXAM DESCRIPTION: CT HEAD WITHOUT IV CONTRAST COMPLETED DATE/TME: 02/24/2018 19:39 CLINICAL HISTORY: 82 years Female Metastatic lung cancer COMPARISON: 07/11/2017. TECHNIQUE: Contiguous axial CT images obtained through the brain without IV contrast. This exam was performed according to our department optimization program which includes automated exposure control, adjustment of the mA and/or kv according to patient size and/or use of iterative reconstruction technique. FINDINGS: The ventricles and sulci are prominent consistent with atrophic changes. Microvascular ischemic changes. No midline shift or mass effect. No mass lesions. No acute hemorrhage. Atherosclerotic calcifications. Areas of diminished attenuation in the frontal white matter bilaterally similar to the previous study. No fluid or significant mucosal thickening in the visualized paranasal sinuses. No depressed calvarial fractures. IMPRESSION: No acute intracranial abnormality is identified. Generalized atrophy with microvascular ischemic changes.
--- NOTE | 2018-02-24 22:28 | RADIOLOGY REPORT (SQ) ---
EXAM DESCRIPTION: CT CHEST WITH IV CONTRAST COMPLETED DATE/TME: 02/24/2018 19:38 : CLINICAL HISTORY: 82 years Female Metastatic lung cancer COMPARISON: 02/23/18 TECHNIQUE: Contiguous axial images were obtained through the chest abdomen and pelvis during the infusion of IV contrast. Reformatted images obtained. MIP reformatted images obtained. This exam was performed according to our department optimization program which includes automated exposure control, adjustment of the mA and/or kv according to patient size and/or use of iterative reconstruction technique. FINDINGS: Calcification in aorta and in the coronary arteries. The aorta is mildly ectatic without evidence of dissection or rupture. No significant thoracic adenopathy. No pericardial or pleural effusion. Small hiatal hernia. There are some focal areas of bronchiectasis. Numerous bilateral noncalcified pulmonary nodules as noted on the previous examination concerning for metastatic disease. This appears unchanged from the examination from yesterday Abdomen pelvis: No acute abnormality of the liver. Large gallstone in the gallbladder without evidence of inflammatory change or wall thickening. Adrenal glands kidneys and spleen are unremarkable. Pancreas is within normal limits. Extensive vascular calcification throughout the abdomen and pelvis. No evidence aortic dissection or rupture. Degenerative changes in the spine. Diverticulosis in the colon without evidence of diverticulitis. IMPRESSION: Extensive noncalcified pulmonary nodules consistent with metastatic disease Some areas of focal bronchiectasis and scarring or atelectasis in the chest Extensive vascular calcification throughout the chest abdomen and pelvis Diverticulosis without evidence of diverticulitis Cholelithiasis
--- NOTE | 2018-02-25 00:27 | RADIOLOGY REPORT (SQ) ---
EXAM DESCRIPTION: CT CERVICAL SPINE WITHOUT IV CONTRAST COMPLETED DATE/TME: 02/24/2018 21:47 CLINICAL HISTORY: Neck pain COMPARISON: 07/11/2017 TECHNIQUE: Axial CT of the cervical spine obtained without contrast. FINDINGS: Straightening of the cervical lordosis is likely secondary to patient positioning. 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 Mild retrolisthesis of C1 over C2 is stable. The atlantoaxial, atlantodental, and occipitoatlantal intervals are preserved. No acute fracture or acute subluxation identified. Prevertebral soft tissues are unremarkable. Moderate multilevel loss of intervertebral disc height, uncovertebral spurring, and facet arthropathy. Mild multilevel osseous neural foraminal narrowing. No osseous central canal narrowing. Visualized skull base is intact. No fracture of the visualized facial bones. Visualized mastoid air cells and paranasal sinuses are well aerated. Atherosclerotic vascular calcification. No cervical lymphadenopathy. Numerous pulmonary nodules again identified in the lung apices compatible with history of patient's carcinoid disease. DLP: 175.98 mGy-cm IMPRESSION: 1. 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 There is slight increase in posterior displacement of the odontoid process of approximately 2 mm relative to the comparison study. 2. No acute fracture identified. 3. Moderate multilevel degenerative change throughout the cervical spine. This exam was performed according to our departmental dose-optimization program, which includes automated exposure control, adjustment of the mA and/or kV according to patient size and/or use of iterative reconstruction technique.
--- NOTE | 2018-02-25 01:53 | ER Document Report ---
ED General - General Chief Complaint: Leg Pain Stated Complaint: LEG PAIN Time Seen by Provider: 02/24/18 19:38 Mode of Arrival: Ambulatory Information source: Relative Cannot obtain history due to: Dementia Notes: Patient complained of bilateral burning sensation to both feet. Patient is a diabetic. Patient has history of dementia and cannot give medical history. TRAVEL OUTSIDE OF THE [place] IN LAST 30 DAYS: No - HPI Onset: Last week Onset/Duration: Gradual Quality of pain: Burning Severity: Moderate Pain Level: 2 Associated symptoms: None Exacerbated by: Denies Relieved by: Denies Similar symptoms previously: No Recently seen / treated by doctor: No - Related Data Allergies/Adverse Reactions: No Known Allergies Allergy (Verified 02/24/18 19:04) Past Medical History - Social History Smoking Status: Unknown if Ever Smoked Family History: Reviewed & Not Pertinent Patient has suicidal ideation: No Patient has homicidal ideation: No - Past Medical History Cardiac Medical History: Reports: Hx Hypercholesterolemia, Hx Hypertension Denies: Hx Coronary Artery Disease, Hx Heart Attack Pulmonary Medical History: Reports: Hx Pneumonia Denies: Hx Asthma, Hx Bronchitis Neurological Medical History: Denies: Hx Cerebrovascular Accident, Hx Seizures Endocrine Medical History: Reports: Hx Diabetes Mellitus Type 2 Renal/ Medical History: Denies: Hx Peritoneal Dialysis Malignancy Medical History: Reports: Hx Lung Cancer Musculoskeletal Medical History: Reports Hx Arthritis - LOWER BACK? Psychiatric Medical History: Denies: Hx Depression Past Surgical History: Reports: Hx Section, Hx Tubal Ligation. Denies : Hx Hysterectomy - Immunizations Immunizations up to date: No Hx Diphtheria, Pertussis, Tetanus Vaccination: No Hx Pneumococcal Vaccination: 02/08/10 Review of Systems - Review of Systems Constitutional: No symptoms reported EENT: No symptoms reported Cardiovascular: No symptoms reported Respiratory: No symptoms reported Gastrointestinal: No symptoms reported Genitourinary: No symptoms reported Female Genitourinary: No symptoms reported Musculoskeletal: Other - Burning pain on both lower legs. Skin: No symptoms reported Hematologic/Lymphatic: No symptoms reported Neurological/Psychological: No symptoms reported -: Yes All other systems reviewed and negative Physical Exam - Vital signs Vitals: Temp Pulse Resp BP Pulse Ox 98.7 F 80 24 H 142/68 H 94 02/24/18 19:11 02/24/18 19:11 02/24/18 19:11 02/24/18 19:11 02/24/18 19:11 Interpretation: Normal - General General appearance: Appears well, Alert In distress: None - HEENT Head: Normocephalic, Atraumatic Eyes: Normal Pupils: PERRL - Respiratory Respiratory status: No respiratory distress Chest status: Nontender Breath sounds: Normal Chest palpation: Normal - Cardiovascular Rhythm: Regular Heart sounds: Normal auscultation Murmur: No - Abdominal Inspection: Normal Distension: No distension Bowel sounds: Normal Tenderness: Nontender Organomegaly: No organomegaly - Back Back: Normal, Nontender - Extremities General upper extremity: Normal inspection, Nontender, Normal color, Normal ROM , Normal temperature General lower extremity: Normal inspection, Nontender, Normal color, Normal ROM , Normal temperature, Normal weight bearing. No: Juan's sign - Neurological Neuro grossly intact: Yes Cognition: Normal Orientation: AAOx4 Dumas Coma Scale Eye Opening: Spontaneous Callie Coma Scale Verbal: Oriented Callie Coma Scale Motor: Obeys Commands Dumas Coma Scale Total: 15 Speech: Normal Motor strength normal: LUE, RUE, LLE, RLE Sensory: Normal - Psychological Associated symptoms: Normal affect, Normal mood - Skin Skin Temperature: Warm Skin Moisture: Dry Skin Color: Normal Course - Vital Signs Vital signs: Temp Pulse Resp BP Pulse Ox 97.6 F 71 18 185/108 H 96 02/25/18 02:18 02/25/18 02:18 02/25/18 02:18 02/25/18 02:18 02/25/18 02:18 - Laboratory Result Diagrams: 02/24/18 19:54 02/24/18 19:54 Laboratory results interpreted by me: 02/24/18 02/24/18 02/24/18 19:54 19:54 20:33 Hgb 11.1 L Hct 34.1 L MCV 79 L MCH 25.9 L RDW 17.0 H Basophils % 2.5 H Carbon Dioxide 31 H Glucose 175 H Urine Urobilinogen 2.0 H Ur Leukocyte Esterase MODERATE H Urine Ascorbic Acid 40 H - Diagnostic Test Radiology reviewed: Image reviewed, Reports reviewed - Transfer of Care Notes: 02/25/18 02:41 Diabetic neuropathy. Urinary tract infection. Discharge - Discharge Clinical Impression: Lung nodules UTI (urinary tract infection) Qualifiers: Urinary tract infection type: acute cystitis Hematuria presence: without hematuria Qualified Code(s): N30.00 - Acute cystitis without hematuria Diabetic neuropathy Qualifiers: Diabetes mellitus type: type 2 Diabetes mellitus complication detail: diabetic polyneuropathy Qualified Code(s): E11.42 - Type 2 diabetes mellitus with diabetic polyneuropathy Condition: Stable Disposition: HOME, SELF-CARE Instructions: Neuropathy ([facility]), Urinary Tract Infection ([facility]) Additional Instructions: Please follow-up with your primary doctor tomorrow morning. Return to the emergency room if her condition worsens. Prescriptions: Gabapentin 300 mg PO QHS #30 capsule Cephalexin Monohydrate [Keflex 500 mg Capsule] 500 mg PO TID 5 Days #30 capsule Referrals: ART BARRETO MD [Primary Care Provider] - Follow up as needed
[2018-02-25] MEDS ORDERED: CLONIDINE HCL 0.2 MG TABLET PO ONE (02:24)
[2018-02-25 03:53] VITALS: BP 185/80
== END 2018-02-25 03:11 | disposition home or self-care (01) ==
LOC: ER 19:00
DX: R91.8 Other nonspecific abnormal finding of lung field (principal); N30.00 Acute cystitis without hematuria; E11.42 Type 2 diabetes mellitus with diabetic polyneuropathy; M79.671 Pain in right foot; M79.672 Pain in left foot; F03.90 Unspecified dementia, unspecified severity, without behavioral disturbance, psychotic disturbance, mood disturbance, and anxiety; I10 Essential (primary) hypertension
CPT/HCPCS: 99284; 96361; 96365; 36415; 87086; 85025; 85610; 80053; 81001; 70450; 71260; 72125; 74177; A9270; J7030; J0696

== ENCOUNTER 2018-03-24 23:07 | Emergency (ER) | payer MEDICARE, MEDICAID ==
[2018-03-24 23:29] LABS: ABSOLUTE BASOPHILS # (AUTO) 0.1 10^3/uL (0.0-0.2); ABSOLUTE EOSINOPHILS # (AUTO) 0.1 10^3/uL (0.0-0.6); ABSOLUTE LYMPHOCYTES (AUTO) 1.9 10^3/uL (0.5-4.7); ABSOLUTE MONOCYTES (AUTO) 1.6 10^3/uL (0.1-1.4); ABSOLUTE NEUT (AUTO) 12.2 10^3/uL (1.7-8.2); BASOPHILS % (AUTO) 0.3 % (0-2); EOSINOPHILS % (AUTO) 0.6 % (0-6); HEMATOCRIT 36.8 % (36.0-47.0); HEMOGLOBIN 12.1 g/dL (12.0-15.5); LYMPHOCYTES % (AUTO) 12.1 % (13-45); MEAN CORPUSCULAR HEMOGLOBIN 26.4 pg (27.0-33.4); MEAN CORPUSCULAR HGB CONC 32.9 g/dL (32.0-36.0); MEAN CORPUSCULAR VOLUME 80 fl (80-97); MONOCYTES % (AUTO) 10.1 % (3-13); PLATELET COUNT 234 10^3/uL (150-450); RED BLOOD COUNT 4.58 10^6/uL (3.72-5.28); RED CELL DISTRIBUTION WIDTH 16.4 % (11.5-14.0); SEGMENTED NEUTROPHILS % (AUTO) 76.9 % (42-78); TOTAL CELLS COUNTED % (AUTO) 100 %; WHITE BLOOD COUNT 15.9 10^3/uL (4.0-10.5)
--- NOTE | 2018-03-24 23:45 | ER Document Report ---
ED General <DALLIN GOLDBERG - Last Filed: 03/25/18 02:20> - General Mode of Arrival: Ambulatory Information source: Relative TRAVEL OUTSIDE OF THE [place] 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 Son states the patient appeared weak and short of breath earlier today. He also states she complained of abdominal pain and posterior neck pain. Son states his reported multiple episodes of diarrhea this evening. At bedside patient states denies any trouble breathing. Son mentions recording a blood pressure of 70s/40s earlier today. Patient currently has 1 tablet of Decadron left prescribed by her oncologist, Dr. Benz at [facility], for her brain tumor. Patient's primary care provider is CHEVY Lozano, at [facility]. (ALFREDA BEAR) - Related Data Allergies/Adverse Reactions: No Known Allergies Allergy (Verified 03/24/18 23:43) Past Medical History - General Information source: Patient - Social History Smoking Status: Former Smoker Cigarette use (# per day): No Chew tobacco use (# tins/day): No Smoking Education Provided: No Frequency of alcohol use: None Family History: Reviewed & Not Pertinent Patient has suicidal ideation: No Patient has homicidal ideation: No - Past Medical History Cardiac Medical History: Reports: Hx Hypercholesterolemia, Hx Hypertension Pulmonary Medical History: Reports: Hx Pneumonia Endocrine Medical History: Reports: Hx Diabetes Mellitus Type 2 Malignancy Medical History: Reports: Hx Lung Cancer Musculoskeletal Medical History: Reports Hx Arthritis - LOWER BACK? Past Surgical History: Reports: Hx Section, Hx Tubal Ligation - Immunizations Immunizations up to date: No Hx Diphtheria, Pertussis, Tetanus Vaccination: No Hx Pneumococcal Vaccination: 02/08/10 <ALFREDA BEAR - Last Filed: 03/25/18 05:17> Review of Systems - Review of Systems Constitutional: See HPI, Weakness EENT: No symptoms reported Cardiovascular: No symptoms reported Respiratory: See HPI Gastrointestinal: See HPI Genitourinary: No symptoms reported Female Genitourinary: No symptoms reported Musculoskeletal: See HPI Skin: No symptoms reported Hematologic/Lymphatic: No symptoms reported Neurological/Psychological: No symptoms reported -: Yes All other systems reviewed and negative <ALFREDA BEAR - Last Filed: 03/25/18 05:17> Physical Exam <DALLIN GOLDBERG - Last Filed: 03/25/18 02:20> <ALFREDA BEAR - Last Filed: 03/25/18 05:17> - Vital signs Vitals: Temp 97.8 F 03/24/18 23:18 - Notes Notes: GENERAL: Alert, interacts well. No acute distress. HEAD: Normocephalic, atraumatic. EYES: Pupils equal, round, and reactive to light. Extraocular movements intact. ENT: Oral mucosa moist, tongue midline. NECK: Full range of motion. Supple. Trachea midline. LUNGS: Rhonchi with cough, tachypneic, O2 sats 99% at bedside. No respiratory distress. HEART: Regular rate and rhythm. No murmurs, gallops, or rubs. ABDOMEN: Soft, non-tender. Non-distended. Bowel sounds present in all 4 quadrants. EXTREMITIES: Moves all 4 extremities spontaneously. No edema, radial and dorsalis pedis pulses 2/4 bilaterally. No cyanosis. NEUROLOGICAL: Alert and oriented x3. Normal speech. PSYCH: Normal affect, normal mood. SKIN: BLE cool to touch, good capillary refill. Dry, normal turgor. No rashes or lesions noted. (ALFREDA BEAR) Course - Laboratory Result Diagrams: 03/24/18 23:20 03/24/18 23:20 - Diagnostic Test Radiology reviewed: Image reviewed, Reports reviewed - Chest x-ray is unchanged compared to CT scan from 1 month ago. <DALLIN GOLDBERG - Last Filed: 03/25/18 02:20> - Laboratory Result Diagrams: 03/24/18 23:20 03/24/18 23:20 <ALFREDA BEAR - Last Filed: 03/25/18 05:17> - Re-evaluation Re-evalutation: 03/25/18 01:37 On 02/24/2018 the patient had a BUN of 20 and a creatinine of 0.85, today the BUN is 46 with a creatinine 1.17. White count today is 15,900 with 77 segs, she has been on Decadron now for 2 weeks. The urinalysis today shows specific gravity 1.023 with 35 hyaline casts which is consistent with the clinical appearance of dehydration. 03/25/18 01:39 Patient was given 2 L of IV normal saline. (DALLIN GOLDBERG) - Vital Signs Vital signs: Temp Pulse Resp BP Pulse Ox 97.8 F 20 129/64 H 99 03/24/18 23:18 03/25/18 02:01 03/25/18 02:01 03/25/18 02:01 - Laboratory Laboratory results interpreted by me: 03/24/18 03/24/18 03/24/18 23:20 23:20 23:58 WBC 15.9 H MCH 26.4 L RDW 16.4 H Lymphocytes % 12.1 L Absolute Neutrophils 12.2 H Absolute Monocytes 1.6 H BUN 46 H Est GFR ( Amer) 53 L Est GFR (Non-Af Amer) 44 L Glucose 228 H Total Bilirubin < 0.1 L AST 10 L Albumin 3.4 L Urine Urobilinogen 4.0 H Ur Leukocyte Esterase TRACE H Discharge <DALLIN GOLDBERG - Last Filed: 03/25/18 02:20> <ALFREDA BEAR - Last Filed: 03/25/18 05:17> - Discharge Clinical Impression: Generalized weakness, Dehydration Metastatic lung cancer (metastasis from lung to other site) Qualifiers: Laterality: unspecified laterality Qualified Code(s): C34.90 - Malignant neoplasm of unspecified part of unspecified bronchus or lung Condition: Stable Disposition: HOME, SELF-CARE Additional Instructions: Weakness: We did not find a definite cause for your weakness. This may require further medical tests. Weakness can be caused by infection, physical exhaustion , rapid weight loss, dehydration, or medicine side effects. Diseases of the muscles, heart, nerves, and blood vessels can make you weak. Sometimes the problem is simply depression or lack of exercise. You should get plenty of rest. . Eat a nutritious diet with multiple small , low-sugar meals. If symptoms continue, additional medical evaluation will be necessary. Be sure to follow up as instructed. If you become very dizzy, nauseated, or feel like you're going to faint, lie down right away. Wait until the symptoms have passed before you get up again. Stand up slowly. Call the doctor or return if you develop chest pain, abdominal pain, severe headache, irregular heartbeat or very fast pulse, confusion, vision problems, fever, muscular pain, or any other new symptom. Dehydration: Dehydration can result from vomiting or diarrhea, fever, or decreased intake of fluids. If severe, hospitalization and intravenous fluids may be required. Most cases are treated at home with fluids by mouth. For the next 24 hours, drink lots of clear fluids. In mild cases, this can be soda pop or sports drinks. For more severe dehydration, the doctor may recommend special fluids such as Pedialyte or Lytren. Try to get three liters ( 3 quarts) of fluid per day. If vomiting occurs, continue to drink the fluids frequently (every 15 to 20 minutes), but in small amounts (one or two ounces). Depending on the type of dehydration, the doctor may prescribe antinausea medicine or potassium replacements. Call the doctor or return for re-examination if you become progressively weak, vomit repeatedly, or have other new symptoms. The weakness you are experiencing is probably due to becoming dehydrated. You should drink plenty of fluids throughout the day in the evening. Follow-up with your doctor in the next 1-2 days for recheck of your lab work including your urine. RETURN TO THE EMERGENCY ROOM IF ANY NEW OR WORSENING SYMPTOMS. Referrals: ART BARRETO MD [Primary Care Provider] - Follow up as needed MANNIE CHOWDHURY FNP [NURSE PRACTITIONER] - Scribe Attestation: 03/25/18 00:28 I personally performed the services described in the documentation, reviewed and edited the documentation which was dictated to the scribe in my presence, and it accurately records my words and actions. (DALLIN GOLDBERG) Scribe Documentation - Scribe Written by Man:: Man Fall, 03/25/2018 00:09 acting as scribe for :: Jade <ALFREDA BEAR - Last Filed: 03/25/18 05:17>
[2018-03-24 23:47] LABS: ALANINE AMINOTRANSFERASE 14 U/L (9-52); ALBUMIN 3.4 g/dL (3.5-5.0); ALKALINE PHOSPHATASE 72 U/L (38-126); ANION GAP 16 (5-19); ASPARTATE AMINO TRANSFERASE 10 U/L (14-36); BILIRUBIN,TOTAL < 0.1 mg/dL (0.2-1.3); BLOOD UREA NITROGEN 46 mg/dL (7-20); CALCIUM 9.2 mg/dL (8.4-10.2); CARBON DIOXIDE 26 mmol/L (22-30); CHLORIDE 101 mmol/L (98-107); GLUCOSE 228 mg/dL (75-110); POTASSIUM 4.3 mmol/L (3.6-5.0); SODIUM 143.1 mmol/L (137-145); TOTAL PROTEIN 6.3 g/dL (6.3-8.2)
[2018-03-25] MEDS ORDERED: NORMAL SALINE 1000 ML 1,000 ML IV ONE (00:03)
[2018-03-25 00:25] LABS: APPEARANCE,URINE SLIGHTLY-CLOUDY; BILIRUBIN,URINE NEGATIVE (NEGATIVE); COLOR,URINE AMBER; GLUCOSE, URINE NEGATIVE (NEGATIVE); KETONES,URINE NEGATIVE (NEGATIVE); LEUKOCYTE ESTERASE,URINE TRACE (NEGATIVE); NITRITE,URINE NEGATIVE (NEGATIVE); PROTEIN,URINE NEGATIVE (NEGATIVE); URINE SPECIFIC GRAVITY 1.023
--- NOTE | 2018-03-25 02:14 | RADIOLOGY REPORT (SQ) ---
EXAM DESCRIPTION: XR CHEST 1 VIEW COMPLETED DATE/TME: 03/25/2018 01:41 CLINICAL HISTORY: 82 years, Female, Generalized weakness, dehydration, metastatic lung COMPARISON: CT chest 02/24/2018 NUMBER OF VIEWS: 1 TECHNIQUE: AP portable upright chest LIMITATIONS: None. FINDINGS: Heart size is normal. Atheromatous change and ectasia of the thoracic aorta. Osteopenia. No pneumothorax. Chronic appearing nodular/reticulonodular changes of the lungs, grossly similar to the prior CT. Tiny right effusion and/or pleural thickening. Underlying emphysema. IMPRESSION: Chronic nodular/reticulonodular changes with underlying emphysema. Tiny right effusion and/or pleural thickening. 2010 [employer]- All Rights Reserved
[2018-03-25 02:26] VITALS: BP 129/64
--- NOTE | 2018-03-26 10:44 | EKG REPORT ---
SEVERITY:- NORMAL ECG - SINUS RHYTHM : Confirmed by: Jarred Iglesias 26-Mar-2018 10:44:10
== END 2018-03-25 02:43 | disposition home or self-care (01) ==
LOC: ER 23:07
DX: E86.0 Dehydration (principal); C34.90 Malignant neoplasm of unspecified part of unspecified bronchus or lung; C79.31 Secondary malignant neoplasm of brain; R05 Cough; R06.82 Tachypnea, not elsewhere classified; R53.1 Weakness; M54.2 Cervicalgia; R10.9 Unspecified abdominal pain; R19.7 Diarrhea, unspecified; E11.9 Type 2 diabetes mellitus without complications; I10 Essential (primary) hypertension; Z87.891 Personal history of nicotine dependence
CPT/HCPCS: 93005; 99285; 96360; 51701; 36415; 87086; 85025; 80053; 81001; 71045; 93010; J7030

== ENCOUNTER 2018-03-27 08:35 | Emergency (ER) | payer MEDICARE, MEDICAID ==
[2018-03-27 09:16] LABS: ABSOLUTE BASOPHILS # (AUTO) 0.1 10^3/uL (0.0-0.2); ABSOLUTE EOSINOPHILS # (AUTO) 0.3 10^3/uL (0.0-0.6); ABSOLUTE LYMPHOCYTES (AUTO) 1.9 10^3/uL (0.5-4.7); ABSOLUTE MONOCYTES (AUTO) 1.3 10^3/uL (0.1-1.4); ABSOLUTE NEUT (AUTO) 10.2 10^3/uL (1.7-8.2); BASOPHILS % (AUTO) 1.1 % (0-2); EOSINOPHILS % (AUTO) 2.3 % (0-6); HEMATOCRIT 36.1 % (36.0-47.0); LYMPHOCYTES % (AUTO) 13.6 % (13-45); MEAN CORPUSCULAR HEMOGLOBIN 26.2 pg (27.0-33.4); MEAN CORPUSCULAR HGB CONC 33.1 g/dL (32.0-36.0); MEAN CORPUSCULAR VOLUME 79 fl (80-97); MONOCYTES % (AUTO) 9.3 % (3-13); PLATELET COUNT 199 10^3/uL (150-450); RED BLOOD COUNT 4.55 10^6/uL (3.72-5.28); RED CELL DISTRIBUTION WIDTH 16.4 % (11.5-14.0); SEGMENTED NEUTROPHILS % (AUTO) 73.7 % (42-78); TOTAL CELLS COUNTED % (AUTO) 100 %; WHITE BLOOD COUNT 13.8 10^3/uL (4.0-10.5)
[2018-03-27 09:41] LABS: ALANINE AMINOTRANSFERASE 13 U/L (9-52); ALBUMIN 3.3 g/dL (3.5-5.0); ALKALINE PHOSPHATASE 71 U/L (38-126); ANION GAP 9 (5-19); ASPARTATE AMINO TRANSFERASE 21 U/L (14-36); BILIRUBIN,DIRECT 0.2 mg/dL (0.0-0.4); BILIRUBIN,TOTAL 0.6 mg/dL (0.2-1.3); BLOOD UREA NITROGEN 18 mg/dL (7-20); CALCIUM 9.3 mg/dL (8.4-10.2); CARBON DIOXIDE 32 mmol/L (22-30); CHLORIDE 101 mmol/L (98-107); GLUCOSE 118 mg/dL (75-110); POTASSIUM 4.4 mmol/L (3.6-5.0); SODIUM 141.6 mmol/L (137-145); TOTAL PROTEIN 6.6 g/dL (6.3-8.2)
--- NOTE | 2018-03-27 10:06 | RADIOLOGY REPORT (SQ) ---
EXAM DESCRIPTION: KUB/ABDOMEN (SINGLE VIEW) COMPLETED DATE/TIME: 03/27/2018 9:55 am REASON FOR STUDY: eval for constipation COMPARISON: None. NUMBER OF VIEWS: One view. TECHNIQUE: Supine radiographic image of the abdomen acquired. LIMITATIONS: None. FINDINGS: BOWEL GAS PATTERN: Moderate amount of fecal material throughout the colon. Nonspecific bassem wel-gas pattern. CALCIFICATIONS: No suspicious calcifications. SOFT TISSUES: No gross mass or suggestion of organomegaly. HARDWARE: None in the abdomen. BONES: Thoracic and lumbar spondylosis. Old healed bilateral rib fractures. OTHER: Atherosclerotic calcification abdominal aorta. No pneumoperitoneum. IMPRESSION: Constipation. TECHNICAL DOCUMENTATION: JOB ID: [id number] 2010 [email or web address]- All Rights Reserved Reading location - IP/workstation name: [email or web address]
[2018-03-27 10:39] LABS: APPEARANCE,URINE CLEAR; BILIRUBIN,URINE NEGATIVE (NEGATIVE); COLOR,URINE YELLOW; GLUCOSE, URINE NEGATIVE (NEGATIVE); KETONES,URINE NEGATIVE (NEGATIVE); LEUKOCYTE ESTERASE,URINE NEGATIVE (NEGATIVE); NITRITE,URINE NEGATIVE (NEGATIVE); PROTEIN,URINE NEGATIVE (NEGATIVE); UROBILINOGEN,URINE NEGATIVE mg/dL (<2.0)
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
[2018-03-27 14:26] VITALS: BP 147/68
== END 2018-03-27 14:26 | disposition home or self-care (01) ==
LOC: ER 08:35
DX: R44.1 Visual hallucinations (principal); K59.00 Constipation, unspecified; R53.1 Weakness; R41.82 Altered mental status, unspecified; E78.00 Pure hypercholesterolemia, unspecified; I10 Essential (primary) hypertension; E11.9 Type 2 diabetes mellitus without complications; Z85.118 Personal history of other malignant neoplasm of bronchus and lung; Z98.51 Tubal ligation status
CPT/HCPCS: 36415; 51701; 74018; 80053; 81001; 85025; 87086; 87088; 87186; 99285